=== PATIENT | female | born 1935 | race Caucasian/White ===

== ENCOUNTER 2019-11-27 07:56 | Observation (INO) ==
--- NOTE | 2019-11-27 08:57 | ERNOTE ---
Abdominal HPI - Narrative Date of Service: 11/27/19 - General Chief Complaint: Abdominal Pain Time Seen by Provider: 11/27/19 08:36 Source: patient Exam Limitations: no limitations - Immun/Allergies/Home Medications Immunizatons: IMMUNIZATION HX Immunizations Up to Date Yes History of Influenza Vaccine Yes Hx Pneumococcal Vaccination No Allergies/Adverse Reactions: Allergies No Known Allergies Allergy (Verified 12/01/19 08:37) Home Medications: HOME MEDICATIONS Alendronate Sodium [Fosamax] 70 mg PO Q7D 11/19/19 [Last Taken Unknown] Aspirin 81 mg PO DAILY 11/19/19 [Last Taken Unknown] Atorvastatin Calcium [Lipitor] 20 mg PO DAILY 11/19/19 [Last Taken Unknown] Calcium Carbonate [[id number]-Vbc-121] 500 mg PO PRN PRN 11/19/19 [Last Taken Unknown] Dexlansoprazole [Dexilant] 60 mg PO DAILY 11/19/19 [Last Taken Unknown] Donepezil HCl [Aricept] 10 mg PO HS 11/19/19 [Last Taken Unknown] Ferrous Sulfate 325 mg PO Q48H 11/19/19 [Last Taken Unknown] Furosemide [Lasix] 40 mg PO DAILY 11/19/19 [Last Taken Unknown] Levothyroxine Sodium [Tirosint] 100 mcg PO DAILY 11/19/19 [Last Taken Unknown] Macitentan [Opsumit] 10 mg PO DAILY 11/19/19 [Last Taken Unknown] Multivitamin [One Daily] 1 ea PO DAILY 11/19/19 [Last Taken Unknown] Potassium Chloride [K-Dur] 20 meq PO DAILY 11/19/19 [Last Taken Unknown] Sildenafil Citrate [Revatio] 20 mg PO TID 11/19/19 [Last Taken Unknown] Acetaminophen 500 mg PO QID #100 tab 11/30/19 [Last Taken Unknown] Polyethylene Glycol 3350 [Miralax] 17 gm PO DAILY #1 bottle 11/30/19 [Last Taken Unknown] Sennosides/Docusate Sodium [Senokot-S] 2 tab PO BID PRN #100 tab 11/30/19 [Last Taken Unknown] - History of Present Illness Narrative: This patient is an 84-year-old female who is here complaining of abdominal pain for the past 2 days. The pain is cramping in the epigastric area. She vomited overnight. She was seen here recently with constipation. She indicates she is not taking anything for the constipation. She has had no diarrhea. She is still constipated. She denies urinary symptoms. She has had prior abdominal surgery. The labs and x-ray from the prior visit were reviewed. It appears an enema was attempted but she was not able to retain the fluid. Review of Systems - Narrative Narrative: She is a ute [place] speaker. She denies fever, cough, and cold symptoms. She reports all others are negative. Medical History (Last Reviewed 11/27/19 @ 08:55 by Cirilo Oneil MD) Anemia CHF (congestive heart failure) Hypercholesteremia Hypokalemia Hypothyroid Pulmonary hypertension Sepsis secondary to UTI Surgical History: Surgical History (Last Reviewed 11/27/19 @ 08:55 by Cirilo Oneil MD) History of gastric surgery in for ulcers Family History: Family History (Last Reviewed 12/01/19 @ 08:48 by Jem Holguin MD) Other Family history non-contributory Social History: (Last Reviewed 11/27/19 @ 08:55 by Cirilo Oneil MD) Tobacco: Smoking Status: Never smoker Alcohol: alcohol intake: never Substance Use: substance use type: does not use Physical Exam - Physical Exam General Appearance: Present: wd/wn, alert, no apparent distress Head Exam: Present: normal inspection, no evidence of injury Eye Exam: Normal inspection: bilateral Ears, Nose, Throat: Present: normal ENT inspection - She is wearing a mask due to the coronavirus pandemic. Neck: Present: normal inspection Respiratory: Present: no respiratory distress, normal breath sounds Cardiovascular/Chest: Present: regular rate, rhythm, no murmur Gastrointestinal/Abdominal: Present: normal bowel sounds, soft, no organomegaly, tenderness - Upper abdominal tenderness without rebound or guarding. Rectal Exam: Present: nontender, normal rectal tone, other Back Exam: Present: normal inspection Extremity Exam: Present: pedal edema Neurological Exam: Present: alert, other - She has a flat affect and shuffling gait. Skin Exam: Present: normal color, warm/dry Progress - Date and Time Seen: Date and Time: 11/27/19 10:52 The patient initially declined having blood work done. I spoke with the patient about the x-ray results. She is not excited about staying here and requested we speak with her son. Her son was contacted and suggested that she stay. She is accepting. I spoke with Dr. Snow. She would like labs done. The patient agrees to this. - Results and Orders Patient's Lab Results:: I have reviewed the patient's lab results. Results and Orders: Laboratory Tests 11/27/19 11/27/19 10:41 10:41 WBC 7.9 RBC 5.17 Hgb 15.1 Hct 45.2 MCV 87.4 MCH 29.2 MCHC 33.4 RDW 14.6 H Plt Count 272 MPV 10.5 Neutrophils % (Manual) 80 H Band Neuts % (Manual) 3 H Lymphocytes % (Manual) 5 L Monocytes % (Manual) 12 H Neutrophils # (Manual) 6.3 H Lymphocytes # (Manual) 0.4 L Monocytes # (Manual) 0.9 Platelet Estimate Normal RBC Morphology Normal Sodium 140 Plasma Sodium 141 Potassium 3.0 L Chloride 100 Carbon Dioxide 26.2 Anion Gap 16.8 H BUN 30 H Creatinine 1.46 H Est GFR (Non-Af Amer) 36 L BUN/Creatinine Ratio 20.5 Random Glucose 165 H Calcium 9.6 Calcium Adj for Albumin 9.4 Total Bilirubin 1.1 AST 33 ALT 32 Alkaline Phosphatase 119 Total Protein 7.6 Albumin 3.8 Lipase 64 L - Vital Signs Patient's Vital Signs:: I have reviewed the patient's vital signs. Vital Signs: Vital Signs 11/27/19 08:07 Temperature 37.0 C Pulse Rate 112 H Respiratory Rate 18 Blood Pressure 128/80 O2 Sat by Pulse Oximetry 95 - X-Ray X-Ray #1 X-Ray: abdomen Interpretation: Reviewed by me X-ray Comments: ~[id number] RAD/Abdomen Flat W/ Upright *~ Exam Date: 11/27/2019 09:35 Ordering Physician: Cirilo Oneil MD Indication: Lower abdominal pain. Technique: Supine and upright views the abdomen utilizing 3 total images compared to prior examination dated November 19, 2019. Findings: Again identified is severe fecal retention throughout the colon. There is evidence of fecal impaction involving the entire colon. Severely dilated and distended colon is subsequently seen. Findings suggestive of a dysfunctional colon. Diffuse decreased bony mineralization. Degenerative change of the spine and hips. IMPRESSION: SEVERE FECAL RETENTION/FECAL IMPACTION INVOLVING THE ENTIRE COLON. Electronically signed by Jay Greco D.O.. Jay Greco DO Dict: 11/27/19 0949 Typed: 11/27/19 0949/ 11/27/19 0951 - Progress/Reassessment Chief Complaint: Abdominal Pain Departure Clinical Impression: Obstipation - Departure Disposition: Still a patient Condition: Stable
[2019-11-27 10:55] LABS: Hematocrit 45.2 % (37.0-47.0); Hemoglobin 15.1 gm/dL (12.5-16.0); Mean Cell Volume 87.4 fl (78-100); Mean Corpuscular Hemoglobin 29.2 pg (27-31); Mean Corpuscular Hgb Conc 33.4 g/dl (32-36); Mean Platelet Volume 10.5 fl (8-12.5); Platelet Count 272 K/mm3 (150-450); Red Blood Count 5.17 M/mm3 (4.2-5.4); Red Cell Distribution Width 14.6 % (11.5-14.0); White Blood Count 7.9 K/mm3 (4.0-10.5)
[2019-11-27 10:56] LABS: Albumin * 3.8 gm/dl (3.4-5.0); Anion Gap 16.8 mmol/L (6.8-13.8); BUN/Creatinine Ratio 20.5 (9.0-21.6); Bilirubin, Total 1.1 mg/dL (0.0-1.1); Ca. Corrected For Albumin 9.4 mg/dL (8.4-10.2); Calcium * 9.6 mg/dL (7.9-10.9); Carbon Dioxide 26.2 mmol/L (24-32.6); Total Protein 7.6 gm/dL (6.2-8.2)
[2019-11-27 10:57] LABS: Total Cells Counted 100
[2019-11-27 11:03] LABS: Band 3 % (0-2.0); Lymphocyte 5 % (20-51); Monocyte 12 % (0-9); Neutrophil 80 % (42-75); Neutrophil # 6.3 K/mm3 (1.3-6.0); Platelet Estimate Normal (NORMAL); RBC Morphology Normal (NORMAL)
[2019-11-27] MEDS ORDERED: MAGNESIUM HYDROXIDE 30 ML UDC PO ONE (11:11)
[2019-11-27] MEDS ORDERED: SENNOSIDES/DOCUSATE SODIUM 1 TAB TABLET PO PRN (12:55)
[2019-11-27] MEDS ORDERED: POTASSIUM BICARBONATE/CIT AC 25 MEQ TABLET.EFF PO ONE (12:57)
[2019-11-27] MEDS ORDERED: SOD CHLORIDE/NAHCO3/KCL/PEG'S 4,000 ML BTL PO ONE (14:34)
--- NOTE | 2019-11-27 14:51 | HP ---
Chief Complaint - Chief Complaint Date of Service: 11/27/19 Time of Service: 11:16 Chief Complaint: Abdominal pain History of Present Illness: 84-year-old female with a past medical history of congestive heart failure, hypokalemia, hypothyroidism, pulmonary hypertension, hypercholesterolemia, anemia presents from home with complaints of abdominal pain. She had presented to the emergency room about a week ago and was sent home on recently and was sent home on an oral bowel regimen. Enema had been tried and she was not able to hold it at her prior presentation. Patient's son stated that she has been having intermittent small slimy stools. She also had an episode of vomiting. X-ray was performed today that showed severe fecal retention/fecal impaction involving the entire colon. Blood work positive for mild hypokalemia of 3. She is being admitted for observation to initiate a more aggressive bowel regimen. Medical History (Last Reviewed 11/27/19 @ 12:00 by Judith Bland RN) Anemia CHF (congestive heart failure) Hypercholesteremia Hypokalemia Hypothyroid Pulmonary hypertension Sepsis secondary to UTI Surgical History: Surgical History (Last Reviewed 11/27/19 @ 12:00 by Judith Bland RN) History of gastric surgery in for ulcers Family History: Family History (Last Updated 11/27/19 @ 15:28 by Giana Snow MD) Other Family history non-contributory Social History: (Last Reviewed 11/27/19 @ 12:00 by Judith Bland RN) Tobacco: Smoking Status: Never smoker Alcohol: alcohol intake: never Substance Use: substance use type: does not use Review Of Systems (GEN) - Review of Systems Generalized/Overall Review: Absent: Fever Respiratory: Absent: Shortness of Breath Cardiac: Absent: Chest Pain Abdominal: Present: Abdominal Pain, Constipation Misc: All systems neg except as marked Immunizations: IMMUNIZATION HX Immunizations Up to Date Yes History of Influenza Vaccine Yes Hx Pneumococcal Vaccination No Allergies/Adverse Reactions: Allergies Allergy/AdvReac Type Severity Reaction Status Date / Time No Known Allergies Allergy Verified 11/27/19 08:19 Home Medications: HOME MEDICATIONS Alendronate Sodium [Fosamax] 70 mg PO Q7D 11/19/19 [Last Taken Unknown] Aspirin 81 mg PO DAILY 11/19/19 [Last Taken Unknown] Atorvastatin Calcium [Lipitor] 20 mg PO DAILY 11/19/19 [Last Taken Unknown] Calcium Carbonate [[id number]-Jom-203] 500 mg PO PRN PRN 11/19/19 [Last Taken Unknown] Dexlansoprazole [Dexilant] 60 mg PO DAILY 11/19/19 [Last Taken Unknown] Donepezil HCl [Aricept] 10 mg PO HS 11/19/19 [Last Taken Unknown] Ferrous Sulfate 325 mg PO Q48H 11/19/19 [Last Taken Unknown] Furosemide [Lasix] 40 mg PO DAILY 11/19/19 [Last Taken Unknown] Levothyroxine Sodium [Tirosint] 100 mcg PO DAILY 11/19/19 [Last Taken Unknown] Macitentan [Opsumit] 10 mg PO DAILY 11/19/19 [Last Taken Unknown] Multivitamin [One Daily] 1 ea PO DAILY 11/19/19 [Last Taken Unknown] Potassium Chloride [K-Dur] 20 meq PO DAILY 11/19/19 [Last Taken Unknown] Sildenafil Citrate [Revatio] 20 mg PO TID 11/19/19 [Last Taken Unknown] Exam - Exam Vital Signs: Vital Signs - Last Taken Temp 37.3 C 11/27/19 14:17 Pulse 104 H 11/27/19 14:17 Resp 18 11/27/19 14:17 BP 144/72 11/27/19 14:17 Pulse Ox 93 11/27/19 14:17 Constitutional: Present: Alert, Cooperative, No distress, Lethargic ENT Exam: Present: hearing grossly normal, moist mucous membranes Eye Exam: bilateral eye: normal inspection, PERRL Neck: Absent: lymphadenopathy (R), lymphadenopathy (L) Back Exam: Present: normal inspection, no vertebral tenderness Respiratory: Present: lungs clear, no respiratory distress, no accessory muscle use, No wheezing. Absent: crackles, rhonchi Cardiovascular/Chest: Present: normal peripheral pulses, regular rate, rhythm, no edema, no murmur Peripheral Pulses: dorsalis-pedis (R): 1+, dorsalis-pedis (L): 1+ Abdomen: Present: Normal bowel sounds, firm, distended Extremity: Present: non-tender, no pedal edema Skin Exam: Present: normal color, warm/dry Neurologic: Present: alert, normal mood/affect Appearance: Present: appropriate appearance Eye contact: Present: cooperative Thoughts: Present: normal mood /affect Diagnostic Studies: Abnormal Lab Results 11/27/19 11/27/19 Range/Units 10:41 10:41 RDW 14.6 H (11.5-14.0) % Neutrophils % (Manual) 80 H (42-75) % Band Neuts % (Manual) 3 H (0-2.0) % Lymphocytes % (Manual) 5 L (20-51) % Monocytes % (Manual) 12 H (0-9) % Neutrophils # (Manual) 6.3 H (1.3-6.0) K/mm3 Lymphocytes # (Manual) 0.4 L (1.5-3.5) k/mm3 Potassium 3.0 L (3.4-4.6) mmol/L Anion Gap 16.8 H (6.8-13.8) mmol/L BUN 30 H (3-23) mg/dL Creatinine 1.46 H (0.4-1.4) mg/dL Est GFR (Non-Af Amer) 36 L (60-130) mL/min Random Glucose 165 H (70-110) mg/dL Lipase 64 L (73-393) U/L Laboratory Results WBC 7.9 K/mm3 (4.0-10.5) 11/27/19 10:41 RBC 5.17 M/mm3 (4.2-5.4) 11/27/19 10:41 Hgb 15.1 gm/dL (12.5-16.0) 11/27/19 10:41 Hct 45.2 % (37.0-47.0) 11/27/19 10:41 MCV 87.4 fl (78-100) 11/27/19 10:41 MCH 29.2 pg (27-31) 11/27/19 10:41 MCHC 33.4 g/dl (32-36) 11/27/19 10:41 RDW 14.6 % (11.5-14.0) H 11/27/19 10:41 Plt Count 272 K/mm3 (150-450) 11/27/19 10:41 MPV 10.5 fl (8-12.5) 11/27/19 10:41 Neutrophils % (Manual) 80 % (42-75) H 11/27/19 10:41 Band Neuts % (Manual) 3 % (0-2.0) H 11/27/19 10:41 Lymphocytes % (Manual) 5 % (20-51) L 11/27/19 10:41 Monocytes % (Manual) 12 % (0-9) H 11/27/19 10:41 Neutrophils # (Manual) 6.3 K/mm3 (1.3-6.0) H 11/27/19 10:41 Lymphocytes # (Manual) 0.4 k/mm3 (1.5-3.5) L 11/27/19 10:41 Monocytes # (Manual) 0.9 k/mm3 (0.0-1.0) 11/27/19 10:41 Platelet Estimate Normal (NORMAL) 11/27/19 10:41 RBC Morphology Normal (NORMAL) 11/27/19 10:41 Sodium 140 mmol/L (132-142) 11/27/19 10:41 Plasma Sodium 141 mmol/L (130-142) 11/27/19 10:41 Potassium 3.0 mmol/L (3.4-4.6) L 11/27/19 10:41 Chloride 100 mmol/L (97-106) 11/27/19 10:41 Carbon Dioxide 26.2 mmol/L (24-32.6) 11/27/19 10:41 Anion Gap 16.8 mmol/L (6.8-13.8) H 11/27/19 10:41 BUN 30 mg/dL (3-23) H 11/27/19 10:41 Creatinine 1.46 mg/dL (0.4-1.4) H 11/27/19 10:41 Est GFR (Non-Af Amer) 36 mL/min (60-130) L 11/27/19 10:41 BUN/Creatinine Ratio 20.5 (9.0-21.6) 11/27/19 10:41 Random Glucose 165 mg/dL (70-110) H 11/27/19 10:41 Calcium 9.6 mg/dL (7.9-10.9) 11/27/19 10:41 Calcium Adj for Albumin 9.4 mg/dL (8.4-10.2) 11/27/19 10:41 Total Bilirubin 1.1 mg/dL (0.0-1.1) 11/27/19 10:41 AST 33 U/L (0-48) 11/27/19 10:41 ALT 32 U/L (19-67) 11/27/19 10:41 Alkaline Phosphatase 119 U/L (50-170) 11/27/19 10:41 Total Protein 7.6 gm/dL (6.2-8.2) 11/27/19 10:41 Albumin 3.8 gm/dl (3.4-5.0) 11/27/19 10:41 Lipase 64 U/L (73-393) L 11/27/19 10:41 Assessment/Plan - Narrative Narrative: 84-year-old female with a past medical history of congestive heart failure, hypokalemia, hypothyroidism, pulmonary hypertension, hypercholesterolemia, anemia presents from home with complaints of abdominal pain. She had presented to the emergency room about a week ago and was sent home on recently and was sent home on an oral bowel regimen. Enema had been tried and she was not able to hold it at her prior presentation. Patient's son stated that she has been having intermittent small slimy stools. She also had an episode of vomiting. X-ray was performed today that showed severe fecal retention/fecal impaction involving the entire colon. Blood work positive for mild hypokalemia of 3. She is being admitted for observation to initiate a more aggressive bowel regimen. Plan #1 start bowel regimen including senna, Colace and GoLYTELY #2 replete potassium as needed #3 CBC and CMP in the morning #4 ambulate as tolerated #5 resume home medications for comorbidities - Assessment/Plan (1) Obstipation Problem: Acute (2) Hypokalemia Problem: Acute (3) Hypothyroidism Problem: Chronic Qualifiers: Hypothyroidism type: unspecified Qualified Code(s): E03.9 - Hypothyroidism, unspecified (4) CKD (chronic kidney disease) stage 3, GFR 30-59 ml/min Problem: Chronic (5) Hyperlipidemia Problem: Chronic Qualifiers: Hyperlipidemia type: unspecified Qualified Code(s): E78.5 - Hyperlipidemia, unspecified (6) Pulmonary hypertension Problem: Chronic
[2019-11-27] MEDS ORDERED: FERROUS SULFATE 325 MG PO SCH (15:30)
[2019-11-27] MEDS ORDERED: ALENDRONATE SODIUM 70 MG TABLET PO SCH (15:30)
[2019-11-27] MEDS: SILDENAFIL CITRATE 20 MG TABLET PO SCH (16:26)
[2019-11-27] MEDS ORDERED: FERROUS SULFATE 325 MG TABLET PO SCH (17:15)
[2019-11-27] MEDS: CALCIUM CARBONATE 500 MG TAB.CHEW PO PRN (17:38)
[2019-11-27] MEDS: DONEPEZIL HCL 10 MG TABLET PO SCH (20:39)
[2019-11-28] MEDS: CALCIUM CARBONATE 500 MG TAB.CHEW PO PRN (06:34)
[2019-11-28 06:53] LABS: Hematocrit 43.3 % (37.0-47.0); Hemoglobin 14.6 gm/dL (12.5-16.0); Mean Cell Volume 86.1 fl (78-100); Mean Corpuscular Hgb Conc 33.7 g/dl (32-36); Mean Platelet Volume 10.8 fl (8-12.5); Platelet Count 255 K/mm3 (150-450); Red Blood Count 5.03 M/mm3 (4.2-5.4); Red Cell Distribution Width 14.7 % (11.5-14.0); White Blood Count 4.9 K/mm3 (4.0-10.5)
[2019-11-28 06:54] LABS: Albumin * 3.2 gm/dl (3.4-5.0); Anion Gap 12.2 mmol/L (6.8-13.8); BUN/Creatinine Ratio 29.9 (9.0-21.6); Calcium * 8.7 mg/dL (7.9-10.9); Carbon Dioxide 29.7 mmol/L (24-32.6); Potassium 2.9 mmol/L (3.4-4.6); Total Protein 6.5 gm/dL (6.2-8.2)
[2019-11-28 06:56] LABS: Total Cells Counted 100
[2019-11-28 07:09] LABS: Lymphocyte 11 % (20-51); Monocyte 12 % (0-9); Neutrophil 77 % (42-75); Neutrophil # 3.8 K/mm3 (1.3-6.0)
[2019-11-28 07:10] LABS: Macrocytosis Trace; Platelet Estimate Normal (NORMAL)
[2019-11-28] MEDS: ONDANSETRON HCL/PF 2 MG/ML VIAL IV PRN ×2 (07:31→10:40)
[2019-11-28] MEDS: LEVOTHYROXINE SODIUM 100 MCG TABLET PO SCH (07:32)
[2019-11-28] MEDS: PANTOPRAZOLE SODIUM 40 MG TABLET.EC PO SCH (07:32)
[2019-11-28] MEDS: ROSUVASTATIN CALCIUM 10 MG TABLET PO SCH (08:36)
[2019-11-28] MEDS: FUROSEMIDE 40 MG TABLET PO SCH (08:37)
[2019-11-28] MEDS: ASPIRIN 81 MG TAB.CHEW PO SCH (08:37)
[2019-11-28] MEDS: Macitentan [Opsumit] 10 MG PO SCH (08:37)
[2019-11-28] MEDS: POTASSIUM CHLORIDE 20 MEQ TABLET.SA PO SCH (08:37)
[2019-11-28] MEDS: SILDENAFIL CITRATE 20 MG TABLET PO SCH ×3 (08:37→17:15)
[2019-11-28] MEDS ORDERED: POTASSIUM BICARBONATE/CIT AC 25 MEQ TABLET.EFF PO ONE (09:13)
[2019-11-28] MEDS ORDERED: LACTULOSE 10 G/15 ML SYRUP PO SCH (09:15)
[2019-11-28] MEDS ORDERED: BISACODYL 10 MG SUPP.RECT RC PRN (09:49)
[2019-11-28] MEDS ORDERED: PSYLLIUM SEED 1 PACKET PACKET PO SCH (10:00)
[2019-11-28] MEDS ORDERED: DIATRIZOATE MEGLUMINE, SODIUM 30 ML BTL PO ONE (14:21)
--- NOTE | 2019-11-28 15:08 | PN ---
Subjective - Date and Time Seen Date: 11/28/19 Time: 09:16 Subjective Narrative: She had one small bowel movement overnight. She did have some nausea and vomiting last night but none this morning. She does continue to have some nausea today. She continues to have abdominal discomfort but denies pain. Objective - Review of Systems Generalized/Overall Review: Denies: Fever Respiratory: Denies: Shortness of Breath Cardiac: Denies: Chest Pain Abdominal: Reports: Other - Abdominal discomfort. Denies: Abdominal Pain Misc: All systems neg except as marked - Vitals Vitals: Last Vital Signs Temp 37.0 C 11/28/19 13:39 Pulse 100 11/28/19 13:39 Resp 16 11/28/19 13:39 BP 139/75 11/28/19 13:39 Pulse Ox 95 11/28/19 13:39 - Abnormal Lab Findings Abnormal Lab Findings: Abnormal Lab Results 11/28/19 11/28/19 Range/Units 06:34 06:34 RDW 14.7 H (11.5-14.0) % Neutrophils % (Manual) 77 H (42-75) % Lymphocytes % (Manual) 11 L (20-51) % Monocytes % (Manual) 12 H (0-9) % Lymphocytes # (Manual) 0.5 L (1.5-3.5) k/mm3 Potassium 2.9 L (3.4-4.6) mmol/L BUN 38 H (3-23) mg/dL Est GFR (Non-Af Amer) 43 L (60-130) mL/min BUN/Creatinine Ratio 29.9 H (9.0-21.6) Random Glucose 141 H (70-110) mg/dL Albumin 3.2 L (3.4-5.0) gm/dl - Exam Constitutional: Present: Alert, Cooperative, Well developed, Well nourished, No distress, Elderly ENT Exam: Present: hearing grossly normal Neck: Present: supple. Absent: lymphadenopathy (R), lymphadenopathy (L) Respiratory: Present: lungs clear, no respiratory distress, no accessory muscle use, No wheezing. Absent: crackles, rhonchi Cardiovascular/Chest: Present: normal peripheral pulses, regular rate, rhythm, no murmur Abdomen: Present: Normal bowel sounds, soft, nontender Extremity: Present: lower extremity edema - 1+ pitting bilateral lower extremities Skin Exam: Present: normal color, warm/dry Neurologic: Present: alert, normal mood/affect Appearance: Present: appropriate appearance Eye contact: Present: cooperative Thoughts: Present: normal mood /affect Assessment/Plan Plan Narrative: 84-year-old female with a past medical history of congestive heart failure, hypokalemia, hypothyroidism, pulmonary hypertension, hypercholesterolemia, anemia presents from home with complaints of abdominal pain. She had presented to the emergency room about a week ago and was sent home on recently and was sent home on an oral bowel regimen. Enema had been tried and she was not able to hold it at her prior presentation. Patient's son stated that she has been having intermittent small slimy stools. She also had an episode of vomiting. X-ray was performed today that showed severe fecal retention/fecal impaction involving the entire colon. Blood work positive for mild hypokalemia of 3. She is being admitted for observation to initiate a more aggressive bowel regimen. She still has not had an adequate bowel movement. She had one small 1 overnight. She continues to be distended and have abdominal discomfort. Plan #1 Continue bowel regimen including senna, Colace and GoLYTELY. I will add lactulose, Fleet enema and Metamucil to her regimen #2 replete potassium as needed #3 CBC and CMP in the morning #4 ambulate as tolerated #5 resume home medications for comorbidities, I am holding her iron supplement #6 I will send her for CT abdomen and pelvis to assess for any lesions that may be preventing her from moving her bowels. - Problems/Diagnosis (1) Obstipation Problem: Acute (2) Hypokalemia Problem: Acute (3) Hypothyroidism Problem: Chronic Qualifiers: Hypothyroidism type: unspecified Qualified Code(s): E03.9 - Hypothyroidism, unspecified (4) CKD (chronic kidney disease) stage 3, GFR 30-59 ml/min Problem: Chronic (5) Hyperlipidemia Problem: Chronic Qualifiers: Hyperlipidemia type: unspecified Qualified Code(s): E78.5 - Hyperlipidemia, unspecified (6) Pulmonary hypertension Problem: Chronic (7) Nausea and vomiting Problem: Acute Qualifiers: Vomiting type: unspecified Vomiting Intractability: non-intractable Qualified Code(s): R11.2 - Nausea with vomiting, unspecified
[2019-11-28] MEDS ORDERED: ONDANSETRON HCL/PF 2 MG/ML VIAL IV ONE (16:00)
[2019-11-28 17:52] LABS: Urine Bilirubin Negative (NEGATIVE); Urine Blood Negative /ul (NEGATIVE); Urine Ketone Negative (NEGATIVE); Urine Nitrite Negative (NEGATIVE); Urine Protein Negative (NEGATIVE); Urine Urobilinogen Normal (NORMAL); Urine pH 7.5 pH (5.0-7.0)
[2019-11-28 17:58] LABS: Urine Appearance Cloudy (CLEAR); Urine Bacteria 2+; Urine Color Yellow; Urine RBC None Seen /hpf (0-5); Urine WBC None Seen /hpf (0-5)
[2019-11-28 17:59] LABS: Urine Amorphous Sediment Few - 1+ (NONE-FEW)
--- NOTE | 2019-11-28 18:52 | CONS ---
HPI - General Date of Service: 11/28/19 Narrative: She was admitted through the emergency room yesterday with colonic distention. Source: patient, RN/MD, RN notes reviewed, old records Exam Limitations: language barrier, other - possibly hearing and baseline orientation - History of Present Illness Initial Comments: She has been seen before in the emergency room on 11/19/2019 with abdominal distention. X-rays at that time showed colonic distention with fecal impaction. History is difficult to obtain due to language barrier and possible hard of hearing/baseline mental status. She does state that she only moves her bowels every 3 or 4 days. She has had this problem once before but it got better when she passed a lot of stool. Currently her abdomen is distended but she denies pain with cough or movement. She has been a little nauseated with the GoLYTELY and CT contrast. She has passed flatus (a large amount from the nurses notes last night) today she has been up to the bathroom several times and had a smear of bowel movement each time and apparently some gas. She has been afebrile her white count is normal and her vital signs have been relatively normal Allergies/Adverse Reactions: Allergies No Known Allergies Allergy (Verified 11/27/19 08:19) Home Medications: Home Medications Medication Instructions Recorded Last Taken Alendronate Sodium [Fosamax] 70 mg PO Q7D 11/19/19 Unknown Aspirin 81 mg PO DAILY 11/19/19 Unknown Atorvastatin Calcium [Lipitor] 20 mg PO DAILY 11/19/19 Unknown Calcium Carbonate [[id number]] 500 mg PO PRN PRN 11/19/19 Unknown Dexlansoprazole [Dexilant] 60 mg PO DAILY 11/19/19 Unknown Donepezil HCl [Aricept] 10 mg PO HS 11/19/19 Unknown Ferrous Sulfate 325 mg PO Q48H 11/19/19 Unknown Furosemide [Lasix] 40 mg PO DAILY 11/19/19 Unknown Levothyroxine Sodium [Tirosint] 100 mcg PO DAILY 11/19/19 Unknown Macitentan [Opsumit] 10 mg PO DAILY 11/19/19 Unknown Multivitamin [One Daily] 1 ea PO DAILY 11/19/19 Unknown Potassium Chloride [K-Dur] 20 meq PO DAILY 11/19/19 Unknown Sildenafil Citrate [Revatio] 20 mg PO TID 11/19/19 Unknown Medications - Medications Current Medications: Current Medications Aspirin (Aspirin Chewable) 81 mg PO DAILY G[facility]Y Stop: 12/28/19 09:01 Last Admin: 11/28/19 08:37 Dose: 81 mg Documented by: Bisacodyl (Dulcolax Suppository) 10 mg RC DAILY PRN PRN Reason: Constipation Stop: 12/28/19 09:50 Last Admin: 11/28/19 11:00 Dose: 10 mg Documented by: Calcium Carbonate/Glycine (Tums) 500 mg PO PRN PRN PRN Reason: STOMACH ACID Stop: 12/27/19 17:16 Last Admin: 11/28/19 06:34 Dose: 500 mg Documented by: Donepezil HCl (Aricept) 10 mg PO HS [facility] Stop: 12/27/19 21:01 Last Admin: 11/27/19 20:39 Dose: 10 mg Documented by: Furosemide (Lasix) 40 mg PO DAILY GABY Stop: 12/28/19 09:01 Last Admin: 11/28/19 08:37 Dose: 40 mg Documented by: Levothyroxine Sodium (Synthroid) 100 mcg PO DAILY@0700 [facility] Stop: 12/28/19 07:01 Last Admin: 11/28/19 07:32 Dose: 100 mcg Documented by: Macitentan [Opsumit] (10 Mg) 10 mg PO DAILY [facility] Stop: 12/28/19 09:01 Last Admin: 11/28/19 08:37 Dose: Not Given Documented by: Pantoprazole Sodium (Protonix) 40 mg PO DAILY@0700 [facility] Stop: 12/28/19 07:31 Last Admin: 11/28/19 07:32 Dose: 40 mg Documented by: Potassium Chloride (K-Dur) 20 meq PO DAILY G[facility]Y Stop: 12/28/19 09:01 Last Admin: 11/28/19 08:37 Dose: 20 meq Documented by: Psyllium Hydrophilic Mucilloid (Metamucil) 1 each PO DAILY [facility] Stop: 12/28/19 10:01 Last Admin: 11/28/19 13:06 Dose: Not Given Documented by: Rosuvastatin Calcium (Crestor) 10 mg PO DAILY G[facility]Y Stop: 12/28/19 09:01 Last Admin: 11/28/19 08:36 Dose: 10 mg Documented by: Senna/Docusate Sodium (Senokot-S) 2 tab PO BID PRN PRN Reason: Constipation Stop: 12/27/19 12:56 Last Admin: 11/27/19 20:39 Dose: 2 tab Documented by: Sildenafil Citrate (Revatio) 20 mg PO TID GABY Stop: 12/27/19 17:01 Last Admin: 11/28/19 17:15 Dose: 20 mg Documented by: Review of Systems - Review of Systems Generalized/Overall Review: Present: Weakness. Absent: Chills, Fever EENTM: Present: No Symptoms Reported Respiratory: Present: No Symptoms Reported Cardiac: Present: No Symptoms Reported Abdominal: Present: Constipation, Other - Soft distention, but denies pain with cough or exam Genitourinary: Present: No Symptoms Reported Musculoskeletal: Present: No Symptoms Reported Neurological: Present: No Symptoms Reported Skin: Present: No Symptoms Reported Physical Examination - Exam Vital Signs: Vital Signs - Last Taken Temp 37.0 C 11/28/19 13:39 Pulse 100 11/28/19 13:39 Resp 16 11/28/19 13:39 BP 139/75 11/28/19 13:39 Pulse Ox 95 11/28/19 13:39 O2 Oxygen Delivery Method Room Air Constitutional: Present: Alert, Cooperative, No distress, Thin and frail ENT Exam: Present: normal ENT inspection, other - Edentulous Neck: Present: normal inspection Breasts: Present: Exam deferred Respiratory: Present: no respiratory distress Abdomen: Present: other - Soft. Palpable stool. No discrete direct or rebound tenderness and no guarding, distended /Rectal: Present: Other - Anus appears normal. Sphincter tone is somewhat lax. The rectum is empty. The examining finger can be advanced into the distal sigmoid. There is very hard stool palpable above this however the examining finger cannot be advanced to the stool itself. Extremity: Present: normal range of motion Skin Exam: Present: warm/dry Neurologic: Present: other - She is alert. She may be hard of hearing. There is some language barrier but she does answer questions appropriately Eye contact: Present: cooperative - Results and Findings: Lab/Microbiology results last 24 hrs: Abnormal/Pending Laboratory Last 24 HRS 11/28/19 11/28/19 11/28/19 17:43 06:34 06:34 RDW 14.7 H Neutrophils % (Manual) 77 H Lymphocytes % (Manual) 11 L Monocytes % (Manual) 12 H Lymphocytes # (Manual) 0.5 L Potassium 2.9 L BUN 38 H Est GFR (Non-Af Amer) 43 L BUN/Creatinine Ratio 29.9 H Random Glucose 141 H Albumin 3.2 L Urine Bacteria 2+ H Flat and upright abdominal x-rays show massive amount of stool. The CT scan today shows a large amount of stool. The small bowel is normal caliber. There is no free fluid. - Assessments/Findings (1) Constipation Diagnosis(s): This appears to be a chronic problem with very hard stool present above the level that can be reached with the finger. The x-rays from 11/19/2019 and 11/27/2019 do not appear significantly different, although there may be less proximal hard stool in the most recent exams. The material for the CT scan and also the GoLYTELY may produce some cathartic results. This does not clinically appear to be a condition that would predispose to acute toxic megacolon, so observation to see the effects of the materials administered would be in order. Case discussed with Dr. Snow. Will continue to follow the patient Problem: Acute Qualifiers: Constipation type: unspecified constipation type Qualified Code(s): K59.00 - Constipation, unspecified
[2019-11-28] MEDS: CIPROFLOXACIN HCL 500 MG TABLET PO SCH (20:36)
[2019-11-28] MEDS: LACTULOSE 10 G/15 ML SYRUP PO SCH (20:37)
[2019-11-28] MEDS: DONEPEZIL HCL 10 MG TABLET PO SCH (20:38)
[2019-11-29] MEDS: ONDANSETRON HCL/PF 2 MG/ML VIAL IV PRN (03:20)
[2019-11-29 06:05] LABS: Hematocrit 42.8 % (37.0-47.0); Hemoglobin 14.2 gm/dL (12.5-16.0); Mean Cell Volume 87.9 fl (78-100); Mean Corpuscular Hemoglobin 29.2 pg (27-31); Mean Corpuscular Hgb Conc 33.2 g/dl (32-36); Mean Platelet Volume 10.3 fl (8-12.5); Platelet Count 239 K/mm3 (150-450); Red Blood Count 4.87 M/mm3 (4.2-5.4); Red Cell Distribution Width 14.6 % (11.5-14.0); White Blood Count 8.3 K/mm3 (4.0-10.5)
[2019-11-29 06:11] LABS: Total Cells Counted 100
[2019-11-29 06:23] LABS: Albumin * 3.1 gm/dl (3.4-5.0); Anion Gap 12.6 mmol/L (6.8-13.8); BUN/Creatinine Ratio 29.9 (9.0-21.6); Bilirubin, Total 0.9 mg/dL (0.0-1.1); Ca. Corrected For Albumin 8.3 mg/dL (8.4-10.2); Calcium * 7.9 mg/dL (7.9-10.9); Carbon Dioxide 30.9 mmol/L (24-32.6); Potassium 3.5 mmol/L (3.4-4.6); Total Protein 6.1 gm/dL (6.2-8.2)
[2019-11-29 06:29] LABS: Atypical (Reactive) Lymph 1 % (0-2); Band 26 % (0-2.0); Lymphocyte 4 % (20-51); Monocyte 9 % (0-9); Neutrophil 60 % (42-75); Toxic Granulation 1+
[2019-11-29] MEDS: LEVOTHYROXINE SODIUM 100 MCG TABLET PO SCH (07:30)
[2019-11-29] MEDS: PANTOPRAZOLE SODIUM 40 MG TABLET.EC PO SCH (07:30)
[2019-11-29] MEDS ORDERED: BISACODYL 5 MG TABLET.DR PO PRN (08:05)
[2019-11-29] MEDS ORDERED: POLYETHYLENE GLYCOL 3350 119 GM BTL PO SCH (09:00)
[2019-11-29] MEDS ORDERED: MAGNESIUM CITRATE 300 ML BTL PO ONE (09:21)
[2019-11-29] MEDS: SILDENAFIL CITRATE 20 MG TABLET PO SCH ×3 (09:40→16:25)
[2019-11-29] MEDS: Macitentan [Opsumit] 10 MG PO SCH (09:40)
[2019-11-29] MEDS: POLYETHYLENE GLYCOL 3350 17 GM PACKET PO SCH (09:40)
[2019-11-29] MEDS: BISACODYL 5 MG TABLET.DR PO SCH (09:40)
[2019-11-29] MEDS: ROSUVASTATIN CALCIUM 10 MG TABLET PO SCH (09:40)
[2019-11-29] MEDS: FUROSEMIDE 40 MG TABLET PO SCH (09:40)
[2019-11-29] MEDS: ASPIRIN 81 MG TAB.CHEW PO SCH (09:40)
[2019-11-29] MEDS: CIPROFLOXACIN HCL 500 MG TABLET PO SCH (09:40)
[2019-11-29] MEDS: POTASSIUM CHLORIDE 20 MEQ TABLET.SA PO SCH (09:40)
[2019-11-29] MEDS: LACTULOSE 10 G/15 ML SYRUP PO SCH (12:14)
[2019-11-29] MEDS: DONEPEZIL HCL 10 MG TABLET PO SCH (20:11)
--- NOTE | 2019-11-29 22:55 | PN ---
Subjective - Date and Time Seen Date: 11/29/19 Time: 08:38 Subjective Narrative: Patient laying comfortable in bed. Has had multilple bowel movements since being admitted for constipation. She states that she is starting to feel better but her belly is still mildly distended. She denies constipation now, she is passing gas. Her vitals are stable and she is afebrile. Objective - Review of Systems Generalized/Overall Review: Reports: No Symptoms Reported EENTM: Reports: No Symptoms Reported Respiratory: Reports: No Symptoms Reported Cardiac: Reports: No Symptoms Reported Abdominal: Reports: Constipation - improving. Denies: Nausea, Vomiting, Melena Genitourinary Symptoms: Reports: No Symptoms Reported Skin: Reports: No Symptoms Reported Endocrine: Reports: No Symptoms Reported - Vitals Vitals: Last Vital Signs Temp 36.6 C 11/29/19 20:00 Pulse 102 H 11/29/19 20:00 Resp 16 11/29/19 20:00 BP 130/70 11/29/19 20:00 Pulse Ox 92 L 11/29/19 20:00 - Abnormal Lab Findings Abnormal Lab Findings: Abnormal Lab Results 11/29/19 11/29/19 Range/Units 05:55 05:55 RDW 14.6 H (11.5-14.0) % Band Neuts % (Manual) 26 H (0-2.0) % Lymphocytes % (Manual) 4 L (20-51) % Lymphocytes # (Manual) 0.3 L (1.5-3.5) k/mm3 BUN 41 H (3-23) mg/dL Est GFR (Non-Af Amer) 39 L (60-130) mL/min BUN/Creatinine Ratio 29.9 H (9.0-21.6) Random Glucose 138 H (70-110) mg/dL Calcium Adj for Albumin 8.3 L (8.4-10.2) mg/dL Total Protein 6.1 L (6.2-8.2) gm/dL Albumin 3.1 L (3.4-5.0) gm/dl - Exam Constitutional: Present: Alert, Oriented x3, Elderly, Thin and frail Cardiovascular/Chest: Present: regular rate, rhythm Abdomen: Present: Normal bowel sounds, distended - mildly, hypoactive. Absent: tender Skin Exam: Present: normal color, warm/dry Appearance: Present: impaired insight Eye contact: Present: cooperative Assessment/Plan Plan Narrative: Patient has had multiple bowel movements since being admitted, starting her on a bowel regimen today. Will order PT to evaluate deconditioning and weakness. Likely home tomorrow, may need HHC with PT pending PT eval. Nurse to call with questions or concerns. - Problems/Diagnosis (1) Constipation Problem: Acute Qualifiers: Constipation type: unspecified constipation type Qualified Code(s): K59.00 - Constipation, unspecified (2) Obstipation Problem: Acute (3) Muscular deconditioning Problem: Acute
[2019-11-30 06:34] LABS: Hematocrit 40.8 % (37.0-47.0); Hemoglobin 13.5 gm/dL (12.5-16.0); Mean Cell Volume 87.9 fl (78-100); Mean Corpuscular Hemoglobin 29.1 pg (27-31); Mean Corpuscular Hgb Conc 33.1 g/dl (32-36); Mean Platelet Volume 10.4 fl (8-12.5); Neutrophil # 5.2 K/mm3 (1.3-6.0); Neutrophil % 74.1 % (42-75.0); Platelet Count 213 K/mm3 (150-450); Red Blood Count 4.64 M/mm3 (4.2-5.4); Red Cell Distribution Width 14.7 % (11.5-14.0)
[2019-11-30 06:47] LABS: Albumin * 2.7 gm/dl (3.4-5.0); Anion Gap 13.3 mmol/L (6.8-13.8); BUN/Creatinine Ratio 29.1 (9.0-21.6); Bilirubin, Total 0.7 mg/dL (0.0-1.1); Ca. Corrected For Albumin 8.6 mg/dL (8.4-10.2); Calcium * 7.9 mg/dL (7.9-10.9); Carbon Dioxide 29.2 mmol/L (24-32.6); Potassium 3.5 mmol/L (3.4-4.6); Total Protein 5.4 gm/dL (6.2-8.2)
[2019-11-30] MEDS: PANTOPRAZOLE SODIUM 40 MG TABLET.EC PO SCH (06:58)
[2019-11-30] MEDS: LEVOTHYROXINE SODIUM 100 MCG TABLET PO SCH (06:58)
[2019-11-30] MEDS: POLYETHYLENE GLYCOL 3350 17 GM PACKET PO SCH (09:06)
[2019-11-30] MEDS: Macitentan [Opsumit] 10 MG PO SCH (09:06)
[2019-11-30] MEDS: SILDENAFIL CITRATE 20 MG TABLET PO SCH ×2 (09:07→13:30)
[2019-11-30] MEDS: ASPIRIN 81 MG TAB.CHEW PO SCH (09:07)
[2019-11-30] MEDS: BISACODYL 5 MG TABLET.DR PO SCH (09:07)
[2019-11-30] MEDS: ROSUVASTATIN CALCIUM 10 MG TABLET PO SCH (09:07)
[2019-11-30] MEDS: POTASSIUM CHLORIDE 20 MEQ TABLET.SA PO SCH (09:07)
[2019-11-30] MEDS: FUROSEMIDE 40 MG TABLET PO SCH (09:07)
[2019-11-30] MEDS: CIPROFLOXACIN HCL 500 MG TABLET PO SCH (09:08)
[2019-11-30] MEDS: ONDANSETRON HCL/PF 2 MG/ML VIAL IV PRN (09:37)
--- NOTE | 2019-11-30 10:30 | DS ---
(1) Constipation Problem: Chronic Qualifiers: Constipation type: drug induced constipation Qualified Code(s): K59.03 - Drug induced constipation (2) Obstipation Problem: Acute (3) Hypokalemia Problem: Resolved (4) CKD (chronic kidney disease) stage 3, GFR 30-59 ml/min Problem: Chronic (5) Pulmonary hypertension Problem: Chronic (6) Nausea and vomiting Problem: Resolved Qualifiers: Vomiting type: unspecified Vomiting Intractability: non-intractable Qualified Code(s): R11.2 - Nausea with vomiting, unspecified Date of Discharge:: 11/30/19 Hospital Course: 84-year-old female with a past medical history of congestive heart failure, hypokalemia, hypothyroidism, pulmonary hypertension, hypercholesterolemia, anemia presents from home with complaints of abdominal pain. She had presented to the emergency room about a week ago and was sent home on recently and was sent home on an oral bowel regimen. Enema had been tried and she was not able to hold it at her prior presentation. Patient's son stated that she has been having intermittent small slimy stools. She also had an episode of vomiting. X-ray was performed today that showed severe fecal retention/fecal impaction involving the entire colon. Blood work positive for mild hypokalemia of 3. She was admitted for observation to initiate a more aggressive bowel regimen. While here she was given cathartics, bulking agents, lubricants, and stimulants. She did start stooling and her abdominal distention is much improved. She is still stooling this morning some. She is complaining of abdominal cramping however and it is most likely from the cathartics. Otherwise she remained stable. I did see her last evening briefly and just introduce myself and then saw her again this morning. She seems more lucid and her conversation is more appropriate this morning. Apparently she has some chronic pain issues and had been treated with gabapentin and taken off of morphine by Dr. Arellano. She then went to Dr. Mclean who kept her on the gabapentin and added the morphine back. Apparently after that is when she started having some increased mental status changes and abdominal complaints. She has not been taking gabapentin or morphine while in the hospital. She does seem to be having some abdominal pain but it may be from the bowel cleansing attempts with multiple medicines while here. At any rate the abdominal distention is resolved and she is stooling more appropriately now. That being resolved, she can be discharged back to home. I will have her follow-up with Dr. Mclean next week. Procedures Performed: none Plan of Treatment: Home health recommended but declined by family. Health Concerns: Constipation. Try to avoid constipating medicines and foods. Constipating foods often include dairy. Medicines include pain medications such as narcotics. Calcium is also constipating. Consider adding magnesium to each dose of calcium. Please review with your primary care physician. Results and Findings: Lab Pending Results 11/27/19 10:41: WBC 7.9, RBC 5.17, Hgb 15.1, Hct 45.2, MCV 87.4, MCH 29.2, MCHC 33.4, RDW 14.6 H, Plt Count 272, MPV 10.5, Neutrophils % (Manual) 80 H, Band Neuts % (Manual) 3 H, Lymphocytes % (Manual) 5 L, Monocytes % (Manual) 12 H, Neutrophils # (Manual) 6.3 H, Lymphocytes # (Manual) 0.4 L, Monocytes # (Manual) 0.9, Platelet Estimate Normal, RBC Morphology Normal 11/27/19 10:41: Sodium 140, Plasma Sodium 141, Potassium 3.0 L, Chloride 100, Carbon Dioxide 26.2, Anion Gap 16.8 H, BUN 30 H, Creatinine 1.46 H, Est GFR (Non-Af Amer) 36 L, BUN/Creatinine Ratio 20.5, Random Glucose 165 H, Calcium 9.6, Calcium Adj for Albumin 9.4, Total Bilirubin 1.1, AST 33, ALT 32, Alkaline Phosphatase 119, Total Protein 7.6, Albumin 3.8, Lipase 64 L 11/28/19 06:34: WBC 4.9 D, RBC 5.03, Hgb 14.6, Hct 43.3, MCV 86.1, MCH 29.0, MCHC 33.7, RDW 14.7 H, Plt Count 255, MPV 10.8, Neutrophils % (Manual) 77 H, Lymphocytes % (Manual) 11 L, Monocytes % (Manual) 12 H, Neutrophils # (Manual) 3.8, Lymphocytes # (Manual) 0.5 L, Monocytes # (Manual) 0.6, Platelet Estimate Normal, Macrocytosis Trace 11/28/19 06:34: Sodium 139, Plasma Sodium 140, Potassium 2.9 L, Chloride 100, Carbon Dioxide 29.7, Anion Gap 12.2, BUN 38 H, Creatinine 1.27, Est GFR (Non-Af Amer) 43 L, BUN/Creatinine Ratio 29.9 H, Random Glucose 141 H, Calcium 8.7, Calcium Adj for Albumin 9.0, Total Bilirubin 1.0, AST 31, ALT 34, Alkaline Phosphatase 103, Total Protein 6.5, Albumin 3.2 L 11/28/19 17:43: Urine Color Yellow, Urine Appearance Cloudy, Urine pH 7.5, Ur Specific [place] 1.010, Urine Protein Negative, Urine Glucose (UA) Negative, Urine Ketones Negative, Urine Blood Negative, Urine Nitrate Negative, Urine Bilirubin Negative, Urine Urobilinogen Normal, Ur Leukocyte Esterase Negative, Urine RBC None seen, Urine WBC None seen, Ur Epithelial Cells 0-5, Amorphous Sediment Few - 1+, Urine Bacteria 2+ H, Urine Culture Comments Culture to follow 11/29/19 05:55: WBC 8.3 D, RBC 4.87, Hgb 14.2, Hct 42.8, MCV 87.9, MCH 29.2, MCHC 33.2, RDW 14.6 H, Plt Count 239, MPV 10.3, Neutrophils % (Manual) 60, Band Neuts % (Manual) 26 H, Lymphocytes % (Manual) 4 L, Monocytes % (Manual) 9, Neutrophils # (Manual) 5.0, Lymphocytes # (Manual) 0.3 L, Monocytes # (Manual) 0.7, Atypic/Reactive Lymphs 1, Toxic Granulation 1+, Toxic Vacuolation 1+ 11/29/19 05:55: Sodium 141, Plasma Sodium 142, Potassium 3.5 D, Chloride 101, Carbon Dioxide 30.9, Anion Gap 12.6, BUN 41 H, Creatinine 1.37, Est GFR (Non-Af Amer) 39 L, BUN/Creatinine Ratio 29.9 H, Random Glucose 138 H, Calcium 7.9, Calcium Adj for Albumin 8.3 L, Total Bilirubin 0.9, AST 36, ALT 37, Alkaline Phosphatase 102, Total Protein 6.1 L, Albumin 3.1 L 11/30/19 06:19: WBC 7.0, RBC 4.64, Hgb 13.5, Hct 40.8, MCV 87.9, MCH 29.1, MCHC 33.1, RDW 14.7 H, Plt Count 213, MPV 10.4, Immature Gran % (Auto) 0.40, Immature Gran # (Auto) 0.03, Neutrophils % 74.1, Lymphocytes % 13.9 L, Monocytes % 10.9 H, Eosinophils % 0.6, Basophils % 0.1, Nucleated RBC % 0.0, Neutrophils # 5.2, Lymphocytes # 0.97 L, Monocytes # 0.8, Eosinophils # 0.0, Absolute Basophils 0.0 11/30/19 06:19: Sodium 142, Plasma Sodium 142, Potassium 3.5, Chloride 103, Carbon Dioxide 29.2, Anion Gap 13.3, BUN 41 H, Creatinine 1.41 H, Est GFR (Non- Af Amer) 38 L, BUN/Creatinine Ratio 29.1 H, Random Glucose 113 H, Calcium 7.9, Calcium Adj for Albumin 8.6, Total Bilirubin 0.7, AST 27, ALT 30, Alkaline Phosphatase 89, Total Protein 5.4 L, Albumin 2.7 L Discharge Location: Home Disposition: Home self-care Condition: Stable Discharge Activity: Activity as tolerated Discharge Diet: General/regular food, High Fiber, Other - Add protein shakes 3 times daily between meals Referrals: Luzma Julian, [Primary Care Provider] - Additional Patient Instructions (free text): Follow up appointment with PCP Luzma Julian in [place] office on at 10:40am. Please fax DC Summary/DC instructions to PCP Luzma Julian to fax # [phone]. Complete Home Medications List: Complete Home Medication List: Alendronate Sodium [Fosamax] 70 mg PO Q7D 11/19/19 Aspirin 81 mg PO DAILY 11/19/19 Atorvastatin Calcium [Lipitor] 20 mg PO DAILY 11/19/19 Calcium Carbonate [[id number]] 500 mg PO PRN PRN 11/19/19 Dexlansoprazole [Dexilant] 60 mg PO DAILY 11/19/19 Donepezil HCl [Aricept] 10 mg PO HS 11/19/19 Ferrous Sulfate 325 mg PO Q48H 11/19/19 Furosemide [Lasix] 40 mg PO DAILY 11/19/19 Levothyroxine Sodium [Tirosint] 100 mcg PO DAILY 11/19/19 Macitentan [Opsumit] 10 mg PO DAILY 11/19/19 Multivitamin [One Daily] 1 ea PO DAILY 11/19/19 Potassium Chloride [K-Dur] 20 meq PO DAILY 11/19/19 Sildenafil Citrate [Revatio] 20 mg PO TID 11/19/19 Acetaminophen 500 mg PO QID #100 tab 11/30/19 Polyethylene Glycol 3350 [Miralax] 17 gm PO DAILY #1 bottle 11/30/19 Sennosides/Docusate Sodium [Senokot-S] 2 tab PO BID PRN #100 tab 11/30/19 Forms: Patient Portal Registration
[2019-11-30 12:24] VITALS: BP 121/67
[2019-12-04] MEDS ORDERED: ALENDRONATE SODIUM 70 MG TABLET PO SCH (06:00)
== END 2019-11-30 13:15 | disposition home or self-care (01) ==
LOC: ER 07:56 → MS 07:56
PROVIDERS: ADMIT Internal Medicine; ATTEND Internal Medicine
DX: N39.0 Urinary tract infection, site not specified; I50.9 Heart failure, unspecified; E87.6 Hypokalemia; K59.03 Drug induced constipation; N18.3 Chronic kidney disease, stage 3 (moderate); E03.9 Hypothyroidism, unspecified; I27.20 Pulmonary hypertension, unspecified; I13.0 Hypertensive heart and chronic kidney disease with heart failure and stage 1 through stage 4 chronic kidney disease, or unspecified chronic kidney disease; E78.5 Hyperlipidemia, unspecified
CPT/HCPCS: 36415; 74019; 74020; 74177; 80053; 81001; 83690; 85025; 87077; 87086; 87186; 97161; 99284; J2405; Q9963; Q9967

== ENCOUNTER 2019-12-01 08:19 | Inpatient (IN) ==
[2019-12-01 08:44] LABS: Hematocrit 42.7 % (37.0-47.0); Hemoglobin 13.8 gm/dL (12.5-16.0); Mean Cell Volume 87.9 fl (78-100); Mean Corpuscular Hemoglobin 28.4 pg (27-31); Mean Corpuscular Hgb Conc 32.3 g/dl (32-36); Mean Platelet Volume 10.4 fl (8-12.5); Platelet Count 222 K/mm3 (150-450); Red Blood Count 4.86 M/mm3 (4.2-5.4); Red Cell Distribution Width 14.6 % (11.5-14.0); White Blood Count 3.9 K/mm3 (4.0-10.5)
[2019-12-01 08:47] LABS: Total Cells Counted 100
--- NOTE | 2019-12-01 08:50 | ERNOTE ---
Medical Problem HPI - Narrative Date of Service: 12/01/19 - General Chief Complaint: General Assessment Time Seen by Provider: 12/01/19 08:23 Source: patient - Pt cannot give useful information, EMS Exam Limitations: clinical condition - Immun/Allergies/Home Medications Immunizations: IMMUNIZATION HX Immunizations Up to Date Yes History of Influenza Vaccine Yes Hx Pneumococcal Vaccination No Allergies/Adverse Reactions: Allergies No Known Allergies Allergy (Verified 12/01/19 08:37) Home Medications: HOME MEDICATIONS Alendronate Sodium [Fosamax] 70 mg PO Q7D 11/19/19 [Last Taken Unknown] Aspirin 81 mg PO DAILY 11/19/19 [Last Taken Unknown] Atorvastatin Calcium [Lipitor] 20 mg PO DAILY 11/19/19 [Last Taken Unknown] Calcium Carbonate [[id number]] 500 mg PO PRN PRN 11/19/19 [Last Taken Unknown] Dexlansoprazole [Dexilant] 60 mg PO DAILY 11/19/19 [Last Taken Unknown] Donepezil HCl [Aricept] 10 mg PO HS 11/19/19 [Last Taken Unknown] Ferrous Sulfate 325 mg PO Q48H 11/19/19 [Last Taken Unknown] Furosemide [Lasix] 40 mg PO DAILY 11/19/19 [Last Taken Unknown] Levothyroxine Sodium [Tirosint] 100 mcg PO DAILY 11/19/19 [Last Taken Unknown] Macitentan [Opsumit] 10 mg PO DAILY 11/19/19 [Last Taken Unknown] Multivitamin [One Daily] 1 ea PO DAILY 11/19/19 [Last Taken Unknown] Potassium Chloride [K-Dur] 20 meq PO DAILY 11/19/19 [Last Taken Unknown] Sildenafil Citrate [Revatio] 20 mg PO TID 11/19/19 [Last Taken Unknown] Acetaminophen 500 mg PO QID #100 tab 11/30/19 [Last Taken Unknown] Polyethylene Glycol 3350 [Miralax] 17 gm PO DAILY #1 bottle 11/30/19 [Last Taken Unknown] Sennosides/Docusate Sodium [Senokot-S] 2 tab PO BID PRN #100 tab 11/30/19 [Last Taken Unknown] - History of Present History Narrative: Just DC after [facility] admission for bowel obstruction per EMS. This AM very confused, weak. EMS found Ox sat 81% on RA, got into 90's on 4 lpm. Pt not able to tell me much, denies abdominal pain. Date (Duration): 12/01/19 Time (Timing): 08:15 Timing: constant Severity: moderate Review of Systems - Review of Systems Constitutional: Present: no symptoms reported - Pt alertness and communication limited. , See HPI Respiratory: Present: no symptoms reported, See HPI Gastrointestinal/Abdominal: Present: See HPI, nausea Genitourinary: Present: no symptoms reported Neurological: Present: no symptoms reported Medical History (Last Reviewed 12/01/19 @ 08:48 by Jem Holguin MD) Anemia CHF (congestive heart failure) Hypercholesteremia Hypokalemia Hypothyroid Pulmonary hypertension Sepsis secondary to UTI Surgical History: Surgical History (Last Reviewed 12/01/19 @ 08:48 by Jem Holguin MD) History of gastric surgery in for ulcers Family History: Family History (Last Reviewed 12/01/19 @ 08:48 by Jem Holguin MD) Other Family history non-contributory Social History: (Last Reviewed 12/01/19 @ 08:48 by Jem Holguin MD) Tobacco: Smoking Status: Never smoker Alcohol: alcohol intake: never Substance Use: substance use type: does not use Physical Exam - Physical Exam General Appearance: Present: alert, mild distress Head Exam: Present: normal inspection Neck: Present: normal inspection Respiratory: Present: rhonchi Cardiovascular/Chest: Present: regular rate, rhythm Gastrointestinal/Abdominal: Present: distended. Absent: abnormal bowel sounds, guarding, rebound, hernia Rectal Exam: Present: deferred Back Exam: Present: normal inspection Extremity Exam: Present: pedal edema Neurological Exam: Present: alert, disoriented to time, disoriented to place - no useful thought content. Absent: oriented Skin Exam: Present: pallor Lymphatic Exam: Present: no adenopathy Progress - Date and Time Seen: Date and Time: 12/01/19 10:26 Pt better breathing with O2, but bowel obstruction, possible pneumonia, fever. Dr. Parish agrees to admission. - Results and Orders Patient's Lab Results:: I have reviewed the patient's lab results. Results and Orders: WBC low normal but XRAY shows recurrence of air fluid levels. UA abnormal. Discharge home is not possible. - Vital Signs Patient's Vital Signs:: I have reviewed the patient's vital signs. Vital Signs: Vital Signs 12/01/19 08:33 Temperature 38.4 C H Pulse Rate 102 H Respiratory Rate 17 Blood Pressure 147/82 O2 Sat by Pulse Oximetry 94 - Progress/Reassessment Chief Complaint: General Assessment Progress:: Unchanged Departure Clinical Impression: Partial bowel obstruction, Fever - Departure Disposition: Short Term Hospital Inpatient Condition: Poor
[2019-12-01 08:54] LABS: Anion Gap 13.4 mmol/L (6.8-13.8); BUN/Creatinine Ratio 26.8 (9.0-21.6); Ca. Corrected For Albumin 8.8 mg/dL (8.4-10.2); Calcium * 8.3 mg/dL (7.9-10.9); Carbon Dioxide 29.3 mmol/L (24-32.6); Potassium 3.7 mmol/L (3.4-4.6)
[2019-12-01 09:13] LABS: Anisocytosis 1+; Atypical (Reactive) Lymph 1 % (0-2); Band 8 % (0-2.0); Lymphocyte 13 % (20-51); Monocyte 17 % (0-9); Neutrophil 61 % (42-75); Neutrophil # 2.4 K/mm3 (1.3-6.0); Platelet Estimate Normal (NORMAL)
[2019-12-01 09:40] LABS: Urine Bilirubin Negative (NEGATIVE); Urine Blood Negative /ul (NEGATIVE); Urine Ketone 5 mg/dL (NEGATIVE); Urine Nitrite Negative (NEGATIVE); Urine Protein Negative (NEGATIVE); Urine Urobilinogen Normal (NORMAL); Urine pH 6.5 pH (5.0-7.0)
[2019-12-01 09:51] LABS: Urine Appearance Slightly Cloudy (CLEAR); Urine Bacteria TRACE; Urine Color Yellow; Urine RBC None Seen /hpf (0-5); Urine WBC 0-5 /hpf (0-5)
[2019-12-01] MEDS ORDERED: SENNOSIDES/DOCUSATE SODIUM 1 TAB TABLET PO PRN (11:58)
[2019-12-01] MEDS ORDERED: FUROSEMIDE 10 MG/ML VIAL IV ONE (12:07)
[2019-12-01] MEDS: SILDENAFIL CITRATE 20 MG TABLET PO SCH ×2 (12:22→16:32)
[2019-12-01] MEDS: ENOXAPARIN SODIUM 40 MG/0.4 ML SYRG SC SCH (12:22)
[2019-12-01] MEDS: ACETAMINOPHEN 500 MG TABLET PO SCH ×3 (12:23→20:39)
--- NOTE | 2019-12-01 14:12 | HP ---
Chief Complaint - Chief Complaint Date of Service: 12/01/19 Time of Service: 12:30 Chief Complaint: Weakness, decreased LOC, hypoxemia to 80%. History of Present Illness: Mrs. Shaw is an 84-year-old female that was just discharged y esterday after being treated for severe constipation and obstipation. She was stooling and had at least a dozen stools after starting cathartics. Her mental status was not great yesterday but not far from her baseline. She has a longstanding history of CHF and fluid retention. She is takes furosemide p.o. daily. Yesterday on auscultation her lungs were clear and they still are today. The chest x-ray shows what appears to be pulmonary vascular congestion and possibly pneumonia. However none of the physical findings of CHF are really present. Neck veins were not distended, her HJ R is nonreactive. She is above 90% on 2 L nasal cannula now. Initially she was on 4 L to get her back above 90. Her mental status at the time of my exam today is better than it was yesterday. I have given her a single dose of furosemide IV 40 mg. If she cannot be weaned back to room air then probably a VQ scan should be done tomorrow. CT scan with PE protocol would require IV contrast material and with her renal status that has chronic kidney disease I would not recommend that at this time. She will be admitted for observation, diuresis, and monitoring. In looking at the x-ray chest, there is eventration of the right hemidiaphragm and small pleural effusions bilaterally versus chronic scarring. I favor the latter. There is no pulmonary vascular congestion but there is cardiomegaly. X-ray of the abdomen shows very little stool present although there is some liquid stool in the cecal area. There are still large dilated loops of bowel and some small bowel gas present.There are multiple air-fluid levels as well. So there is no obstruction but there is a continuing ileus present. Medical History (Last Reviewed 12/01/19 @ 13:20 by Manju Almazan RN) Anemia CHF (congestive heart failure) Hypercholesteremia Hypokalemia Hypothyroid Pulmonary hypertension Sepsis secondary to UTI Surgical History: Surgical History (Last Reviewed 12/01/19 @ 13:20 by Manju Almazan RN) History of gastric surgery in for ulcers Family History: Family History (Last Reviewed 12/01/19 @ 13:20 by Manju Almazan RN) Other Family history non-contributory Social History: (Last Reviewed 12/01/19 @ 13:20 by Manju Almazan RN) Tobacco: Smoking Status: Never smoker Alcohol: alcohol intake: never Substance Use: substance use type: does not use Review Of Systems (GEN) - Review of Systems Generalized/Overall Review: Present: Malaise EENTM: Present: No Symptoms Reported Respiratory: Present: Shortness of Breath Cardiac: Present: No Symptoms Reported Abdominal: Present: Other - Multiple air-fluid levels on the abdomen as well as large dilated loops of gas in both the small and large bowel.. Absent: Nausea, Vomiting, Abdominal Pain Genitourinary: Present: No Symptoms Reported Musculoskeletal: Present: No Symptoms Reported Neurological: Present: No Symptoms Reported Skin: Present: No Symptoms Reported Endocrine: Present: No Symptoms Reported Immunizations: IMMUNIZATION HX Immunizations Up to Date Yes History of Influenza Vaccine Yes Hx Pneumococcal Vaccination No Allergies/Adverse Reactions: Allergies Allergy/AdvReac Type Severity Reaction Status Date / Time No Known Allergies Allergy Verified 12/01/19 13:20 Home Medications: HOME MEDICATIONS Alendronate Sodium [Fosamax] 70 mg PO Q7D 11/19/19 [Last Taken Unknown] Aspirin 81 mg PO DAILY 11/19/19 [Last Taken Unknown] Atorvastatin Calcium [Lipitor] 20 mg PO DAILY 11/19/19 [Last Taken Unknown] Calcium Carbonate [[id number]] 500 mg PO PRN PRN 11/19/19 [Last Taken Unknown] Dexlansoprazole [Dexilant] 60 mg PO DAILY 11/19/19 [Last Taken Unknown] Donepezil HCl [Aricept] 10 mg PO HS 11/19/19 [Last Taken Unknown] Ferrous Sulfate 325 mg PO Q48H 11/19/19 [Last Taken Unknown] Furosemide [Lasix] 40 mg PO DAILY 11/19/19 [Last Taken Unknown] Levothyroxine Sodium [Tirosint] 100 mcg PO DAILY 11/19/19 [Last Taken Unknown] Macitentan [Opsumit] 10 mg PO DAILY 11/19/19 [Last Taken Unknown] Multivitamin [One Daily] 1 ea PO DAILY 11/19/19 [Last Taken Unknown] Potassium Chloride [K-Dur] 20 meq PO DAILY 11/19/19 [Last Taken Unknown] Sildenafil Citrate [Revatio] 20 mg PO TID 11/19/19 [Last Taken Unknown] Acetaminophen 500 mg PO QID #100 tab 11/30/19 [Last Taken Unknown] Polyethylene Glycol 3350 [Miralax] 17 gm PO DAILY #1 bottle 11/30/19 [Last Taken Unknown] Sennosides/Docusate Sodium [Senokot-S] 2 tab PO BID PRN #100 tab 11/30/19 [Last Taken Unknown] Exam - Exam Vital Signs: Vital Signs - Last Taken Temp 37.4 C 12/01/19 11:53 Pulse 101 H 12/01/19 12:25 Resp 21 H 12/01/19 11:54 BP 142/87 12/01/19 12:25 Pulse Ox 93 12/01/19 13:06 Constitutional: Present: Alert, Cooperative, Well developed, Elderly, Thin and frail ENT Exam: Present: normal ENT inspection, hearing grossly normal, pharynx normal Eye Exam: bilateral eye: normal inspection, PERRL, EOMI Neck: Present: non-tender, supple, limited range of motion Back Exam: Present: normal inspection, no CVA tenderness, no vertebral tenderness Breasts: Present: Exam deferred Respiratory: Present: chest non-tender, lungs clear, normal breath sounds, no respiratory distress, no accessory muscle use, No rales, No wheezing. Absent: crackles, rhonchi, stridor, expiration (prolonged) Cardiovascular/Chest: Present: normal peripheral pulses, regular rate, rhythm, no chest tenderness, no edema, no gallop, no JVD, no murmur, no rub Peripheral Pulses: carotid (R): 2+, carotid (L): 2+, radial (R): 2+, radial (L): 2+ Abdomen: Present: Normal bowel sounds, soft, nontender, distended - And tympanitic to percussion /Rectal: Present: Exam deferred Extremity: Present: normal range of motion, non-tender, normal inspection, no pedal edema, no calf tenderness, normal capillary refill Skin Exam: Present: normal color, warm/dry, no cyanosis Lymphatic: Present: no adenopathy Neurologic: Present: rugby union footballer II-XII nml as tested Appearance: Present: appropriate appearance, neat, impaired recent memory Eye contact: Present: cooperative, good eye contact. Absent: normal speech Thoughts: Present: normal thought pattern, no apparent hallucination Diagnostic Studies: Abnormal Lab Results 12/01/19 12/01/19 Range/Units 08:35 08:35 WBC 3.9 L D (4.0-10.5) K/mm3 RDW 14.6 H (11.5-14.0) % Band Neuts % (Manual) 8 H (0-2.0) % Lymphocytes % (Manual) 13 L (20-51) % Monocytes % (Manual) 17 H (0-9) % Lymphocytes # (Manual) 0.5 L (1.5-3.5) k/mm3 BUN 38 H (3-23) mg/dL Creatinine 1.42 H (0.4-1.4) mg/dL Est GFR (Non-Af Amer) 38 L (60-130) mL/min BUN/Creatinine Ratio 26.8 H (9.0-21.6) Total Protein 6.0 L (6.2-8.2) gm/dL Albumin 3.0 L (3.4-5.0) gm/dl Laboratory Results WBC 3.9 K/mm3 (4.0-10.5) L D 12/01/19 08:35 RBC 4.86 M/mm3 (4.2-5.4) 12/01/19 08:35 Hgb 13.8 gm/dL (12.5-16.0) 12/01/19 08:35 Hct 42.7 % (37.0-47.0) 12/01/19 08:35 MCV 87.9 fl (78-100) 12/01/19 08:35 MCH 28.4 pg (27-31) 12/01/19 08:35 MCHC 32.3 g/dl (32-36) 12/01/19 08:35 RDW 14.6 % (11.5-14.0) H 12/01/19 08:35 Plt Count 222 K/mm3 (150-450) 12/01/19 08:35 MPV 10.4 fl (8-12.5) 12/01/19 08:35 Neutrophils % (Manual) 61 % (42-75) 12/01/19 08:35 Band Neuts % (Manual) 8 % (0-2.0) H 12/01/19 08:35 Lymphocytes % (Manual) 13 % (20-51) L 12/01/19 08:35 Monocytes % (Manual) 17 % (0-9) H 12/01/19 08:35 Neutrophils # (Manual) 2.4 K/mm3 (1.3-6.0) 12/01/19 08:35 Lymphocytes # (Manual) 0.5 k/mm3 (1.5-3.5) L 12/01/19 08:35 Monocytes # (Manual) 0.7 k/mm3 (0.0-1.0) 12/01/19 08:35 Atypic/Reactive Lymphs 1 % (0-2) 12/01/19 08:35 Platelet Estimate Normal (NORMAL) 12/01/19 08:35 Anisocytosis 1+ 12/01/19 08:35 Sodium 142 mmol/L (132-142) 12/01/19 08:35 Plasma Sodium 142 mmol/L (130-142) 12/01/19 08:35 Potassium 3.7 mmol/L (3.4-4.6) 12/01/19 08:35 Chloride 103 mmol/L (97-106) 12/01/19 08:35 Carbon Dioxide 29.3 mmol/L (24-32.6) 12/01/19 08:35 Anion Gap 13.4 mmol/L (6.8-13.8) 12/01/19 08:35 BUN 38 mg/dL (3-23) H 12/01/19 08:35 Creatinine 1.42 mg/dL (0.4-1.4) H 12/01/19 08:35 Est GFR (Non-Af Amer) 38 mL/min (60-130) L 12/01/19 08:35 BUN/Creatinine Ratio 26.8 (9.0-21.6) H 12/01/19 08:35 Random Glucose 100 mg/dL (70-110) 12/01/19 08:35 Lactic Acid, Venous 1.2 mmol/L (0.4-2.0) 12/01/19 08:35 Calcium 8.3 mg/dL (7.9-10.9) 12/01/19 08:35 Calcium Adj for Albumin 8.8 mg/dL (8.4-10.2) 12/01/19 08:35 Total Bilirubin 1.0 mg/dL (0.0-1.1) 12/01/19 08:35 AST 27 U/L (0-48) 12/01/19 08:35 ALT 32 U/L (19-67) 12/01/19 08:35 Alkaline Phosphatase 89 U/L (50-170) 12/01/19 08:35 Total Protein 6.0 gm/dL (6.2-8.2) L 12/01/19 08:35 Albumin 3.0 gm/dl (3.4-5.0) L 12/01/19 08:35 Amylase 33 U/L (25-115) 12/01/19 08:35 Lipase 75 U/L (73-393) 12/01/19 08:35 Urine Color Yellow 12/01/19 09:01 Urine Appearance Slightly cloudy (CLEAR) 12/01/19 09:01 Urine pH 6.5 pH (5.0-7.0) 12/01/19 09:01 Ur Specific [place] 1.010 SP.GR. (1.005-1.010) 12/01/19 09:01 Urine Protein Negative mg/dL (NEGATIVE) 12/01/19 09:01 Urine Glucose (UA) Negative mg/dL (NEGATIVE) 12/01/19 09:01 Urine Ketones 5 mg/dL (NEGATIVE) 12/01/19 09:01 Urine Blood Negative /ul (NEGATIVE) 12/01/19 09:01 Urine Nitrate Negative (NEGATIVE) 12/01/19 09:01 Urine Bilirubin Negative mg/dl (NEGATIVE) 12/01/19 09:01 Urine Urobilinogen Normal EU/dl (NORMAL) 12/01/19 09:01 Ur Leukocyte Esterase Negative /ul (NEGATIVE) 12/01/19 09:01 Urine RBC None seen /hpf (0-5) 12/01/19 09:01 Urine WBC 0-5 /hpf (0-5) 12/01/19 09:01 Ur Epithelial Cells 0-5 /hpf (0-5) 12/01/19 09:01 Urine Bacteria Trace (NONE) 12/01/19 09:01 Urine Culture Comments Culture to follow 12/01/19 09:01 Assessment/Plan - Narrative Narrative: 1. Lasix 40 mg IV push x1. 2. Attempt to wean from oxygen 3. Dulcolax suppositories every 6 hours 4. Continue her usual medicines as per usual as ordered. - Assessment/Plan (1) Adynamic ileus Problem: Acute (2) Acute respiratory failure with hypoxemia Problem: Acute (3) Pulmonary hypertension Problem: Chronic (4) Fever Problem: Acute Qualifiers: Fever type: unspecified Qualified Code(s): R50.9 - Fever, unspecified (5) CKD (chronic kidney disease) stage 3, GFR 30-59 ml/min Problem: Chronic
[2019-12-01] MEDS: BISACODYL 10 MG SUPP.RECT RC SCH ×2 (14:52→20:40)
[2019-12-01] MEDS: DONEPEZIL HCL 10 MG TABLET PO SCH (20:39)
[2019-12-01] MEDS ORDERED: TEMAZEPAM 15 MG CAPSULE PO ONE (21:30)
[2019-12-02] MEDS: BISACODYL 10 MG SUPP.RECT RC SCH ×2 (01:37→08:35)
[2019-12-02] MEDS: ACETAMINOPHEN 500 MG TABLET PO SCH ×4 (08:34→22:11)
[2019-12-02] MEDS: MACITENTAN 10 MG PO SCH (08:34)
[2019-12-02] MEDS: SILDENAFIL CITRATE 20 MG TABLET PO SCH ×3 (08:34→17:13)
[2019-12-02] MEDS: FUROSEMIDE 40 MG TABLET PO SCH (08:34)
[2019-12-02] MEDS: LEVOTHYROXINE SODIUM 100 MCG TABLET PO SCH (08:34)
[2019-12-02] MEDS: POTASSIUM CHLORIDE 20 MEQ TABLET.SA PO SCH (08:34)
[2019-12-02] MEDS: ASPIRIN 81 MG TAB.CHEW PO SCH (08:35)
[2019-12-02] MEDS: POLYETHYLENE GLYCOL 3350 17 GM PACKET PO SCH (08:35)
[2019-12-02] MEDS: PANTOPRAZOLE SODIUM 40 MG TABLET.EC PO SCH (08:35)
--- NOTE | 2019-12-02 11:29 | PN ---
Subjective - Date and Time Seen Date: 12/02/19 Time: 10:00 Subjective Narrative: Mrs. Shaw is feeling some better today. She can tell that her abdomen is less distended and not cramping is much. She has had good results from the Dulcolax suppositories which have been given 3 times at 6-hour intervals. On exam she is still tympanitic and has a lot of intraluminal bowel gas still present. KUB and upright this morning shows still there is some retention of stool and obstruction is not ruled out but with her stooling is much as she has been I do not believe she is obstructed. She has an unresolved ileus that is improving. I decided to give the fourth dose of Dulcolax suppository this morning. She has had no more respiratory distress and is now on room air with oxygen saturations in the low 90s. The etiology of the hypoxic event that readmitted her is still undetermined. Her vital signs have been stable and she is afebrile. I anticipate discharge tomorrow. Objective - Review of Systems Generalized/Overall Review: Reports: No Symptoms Reported, Weakness EENTM: Reports: No Symptoms Reported Respiratory: Reports: No Symptoms Reported Cardiac: Reports: No Symptoms Reported Abdominal: Reports: Abdominal Pain - Is improved, Other - Bloating persists Genitourinary Symptoms: Reports: No Symptoms Reported Musculoskeletal Complaints: Reports: No Symptoms Reported Neurological: Reports: No Symptoms Reported Skin: Reports: No Symptoms Reported Endocrine: Reports: No Symptoms Reported - Vitals Vitals: Last Vital Signs Temp 36.8 C 12/02/19 10:45 Pulse 87 12/02/19 10:45 Resp 12 12/02/19 10:45 BP 120/66 12/02/19 10:45 Pulse Ox 91 L 12/02/19 10:45 - EKG/Xray Findings Interpretation: Interp. by me - Exam Constitutional: Present: Alert, Oriented x3, Cooperative, Well developed, Well nourished, No distress ENT Exam: Present: normal ENT inspection, hearing grossly normal, pharynx normal, TMs normal Neck: Present: non-tender, full range of motion Breasts: Present: Exam deferred Respiratory: Present: chest non-tender, lungs clear, normal breath sounds, no respiratory distress, no accessory muscle use Cardiovascular/Chest: Present: normal peripheral pulses, regular rate, rhythm, no chest tenderness, no edema, no gallop, no JVD, no murmur, no rub Abdomen: Present: soft, nontender, distended - And tympanitic to percussion, hypoactive /Rectal: Present: Exam deferred Extremity: Present: normal range of motion, non-tender, normal inspection, no pedal edema, no calf tenderness, normal capillary refill Skin Exam: Present: normal color, warm/dry, no cyanosis Lymphatic: Present: no adenopathy Neurologic: Present: ammonia nitrate operator II-XII nml as tested, no motor/sensory deficits, alert, normal mood/affect Appearance: Present: appropriate appearance, appropriate insight, neat, impaired recent memory Eye contact: Present: cooperative, good eye contact, normal speech Thoughts: Present: normal thought pattern, no apparent hallucination Assessment/Plan Plan Narrative: 1. Continue Dulcolax suppositories 2. Continue supportive care. 3. Repeat chest x-ray tomorrow morning 4. Repeat KUB and upright abdomen tomorrow morning - Problems/Diagnosis (1) Adynamic ileus Problem: Acute (2) Acute respiratory failure with hypoxemia Problem: Resolved (3) Pulmonary hypertension Problem: Chronic (4) Fever Problem: Resolved Qualifiers: Fever type: unspecified Qualified Code(s): R50.9 - Fever, unspecified (5) CKD (chronic kidney disease) stage 3, GFR 30-59 ml/min Problem: Chronic
[2019-12-02] MEDS: ENOXAPARIN SODIUM 40 MG/0.4 ML SYRG SC SCH (13:09)
[2019-12-02] MEDS: DONEPEZIL HCL 10 MG TABLET PO SCH (22:11)
[2019-12-03 06:05] LABS: Hematocrit 38.7 % (37.0-47.0); Hemoglobin 12.6 gm/dL (12.5-16.0); Mean Cell Volume 87.8 fl (78-100); Mean Corpuscular Hemoglobin 28.6 pg (27-31); Mean Corpuscular Hgb Conc 32.6 g/dl (32-36); Mean Platelet Volume 10.2 fl (8-12.5); Neutrophil # 3.6 K/mm3 (1.3-6.0); Neutrophil % 63.4 % (42-75.0); Platelet Count 192 K/mm3 (150-450); Red Blood Count 4.41 M/mm3 (4.2-5.4); Red Cell Distribution Width 14.2 % (11.5-14.0); White Blood Count 5.7 K/mm3 (4.0-10.5)
[2019-12-03 06:13] LABS: Albumin * 2.3 gm/dl (3.4-5.0); Anion Gap 9.2 mmol/L (6.8-13.8); BUN/Creatinine Ratio 27.6 (9.0-21.6); Bilirubin, Total 0.6 mg/dL (0.0-1.1); Ca. Corrected For Albumin 8.6 mg/dL (8.4-10.2); Calcium * 7.6 mg/dL (7.9-10.9); Carbon Dioxide 29.3 mmol/L (24-32.6); Potassium 3.5 mmol/L (3.4-4.6); Total Protein 4.6 gm/dL (6.2-8.2)
[2019-12-03] MEDS: PANTOPRAZOLE SODIUM 40 MG TABLET.EC PO SCH (07:07)
[2019-12-03] MEDS: LEVOTHYROXINE SODIUM 100 MCG TABLET PO SCH (07:07)
[2019-12-03] MEDS: ASPIRIN 81 MG TAB.CHEW PO SCH (08:50)
[2019-12-03] MEDS: ACETAMINOPHEN 500 MG TABLET PO SCH ×4 (08:50→22:05)
[2019-12-03] MEDS: SILDENAFIL CITRATE 20 MG TABLET PO SCH ×3 (08:50→16:10)
[2019-12-03] MEDS: FUROSEMIDE 40 MG TABLET PO SCH (08:51)
[2019-12-03] MEDS: POTASSIUM CHLORIDE 20 MEQ TABLET.SA PO SCH (08:51)
[2019-12-03] MEDS: POLYETHYLENE GLYCOL 3350 17 GM PACKET PO SCH (08:58)
[2019-12-03] MEDS: BISACODYL 10 MG SUPP.RECT RC SCH (08:59)
[2019-12-03] MEDS: MACITENTAN 10 MG PO SCH (09:00)
[2019-12-03] MEDS: ENOXAPARIN SODIUM 40 MG/0.4 ML SYRG SC SCH (11:25)
--- NOTE | 2019-12-03 18:22 | PN ---
Subjective - Date and Time Seen Date: 12/03/19 Time: 07:20 Subjective Narrative: Mrs. Shaw has had an uneventful night. She is more alert and conversant and her voice is much easier to understand today. She is considerably more lucid today. She has eaten a full breakfast and has no complaints. Her abdomen continues to be distended with gas but there is very little stool in the colon. I spoke with Dr. Kilpatrick and his opinion is that she has an atonic colon and will require lifelong cathartics to keep her from getting impacted again. Case management is working on alf placement but because of a very expensive medicine she takes for her pulmonary hypertension they do not want to absorb that cost. It is $10,000 per month. So she will be with us at least another night pending placement. No change in therapy. Objective - Review of Systems Generalized/Overall Review: Reports: Weakness - But improving EENTM: Reports: No Symptoms Reported Respiratory: Reports: Shortness of Breath - With exertion Cardiac: Reports: No Symptoms Reported Abdominal: Reports: Constipation - Is resolved, Other - Bloating Genitourinary Symptoms: Reports: No Symptoms Reported Musculoskeletal Complaints: Reports: No Symptoms Reported Neurological: Reports: No Symptoms Reported, Weakness Skin: Reports: No Symptoms Reported Endocrine: Reports: No Symptoms Reported - Vitals Vitals: Last Vital Signs Temp 37.2 C 12/03/19 17:39 Pulse 89 12/03/19 17:39 Resp 22 H 12/03/19 17:39 BP 130/58 12/03/19 17:39 Pulse Ox 94 12/03/19 17:39 - Abnormal Lab Findings Abnormal Lab Findings: Abnormal Lab Results 12/03/19 12/03/19 Range/Units 05:55 05:55 RDW 14.2 H (11.5-14.0) % Immature Gran % (Auto) 3.10 H (0.001-0.429) % Immature Gran # (Auto) 0.18 H (0.000-0.0310) K/mm3 Lymphocytes % 18.7 L (20-51) % Monocytes % 11.9 H (0.0-9) % Lymphocytes # 1.07 L (1.5-3.5) k/mm3 BUN 35 H (3-23) mg/dL Est GFR (Non-Af Amer) 43 L (60-130) mL/min BUN/Creatinine Ratio 27.6 H (9.0-21.6) Calcium 7.6 L (7.9-10.9) mg/dL Total Protein 4.6 L (6.2-8.2) gm/dL Albumin 2.3 L (3.4-5.0) gm/dl - EKG/Xray Findings XRAY: abdomen Interpretation: Reviewed by me - Exam Constitutional: Present: Alert, Oriented x3, Cooperative, Well developed, Well nourished, No distress ENT Exam: Present: normal ENT inspection, hearing grossly normal, pharynx normal, TMs normal Neck: Present: non-tender, full range of motion, supple, normal inspection Breasts: Present: Exam deferred Respiratory: Present: chest non-tender, lungs clear, normal breath sounds Cardiovascular/Chest: Present: normal peripheral pulses, regular rate, rhythm, no chest tenderness, no edema, no gallop, no JVD, no murmur, no rub Abdomen: Present: Normal bowel sounds, soft, nontender, nondistended, no rebound tenderness, no hepatospenomegaly, no masses /Rectal: Present: Exam deferred Extremity: Present: normal range of motion, non-tender, normal inspection, no pedal edema, no calf tenderness, normal capillary refill Skin Exam: Present: normal color, warm/dry, no cyanosis, cool/dry Lymphatic: Present: no adenopathy Neurologic: Present: azure architect II-XII nml as tested, normal cerebellar test, no motor/sensory deficits, alert, normal mood/affect, oriented x 3 Appearance: Present: appropriate appearance, appropriate insight, neat Eye contact: Present: cooperative, good eye contact, normal speech Thoughts: Present: normal thought pattern, no apparent hallucination Assessment/Plan Plan Narrative: 1. Continue current therapy. 2. I will have her get a Dulcolax suppository once daily. 3. Oxygen is not needed as she is 94% on room air. So the O2 is discontinued. - Problems/Diagnosis (1) Adynamic ileus Problem: Acute (2) Acute respiratory failure with hypoxemia Problem: Resolved (3) Pulmonary hypertension Problem: Chronic (4) Fever Problem: Resolved Qualifiers: Fever type: unspecified Qualified Code(s): R50.9 - Fever, unspecified (5) CKD (chronic kidney disease) stage 3, GFR 30-59 ml/min Problem: Chronic
[2019-12-03] MEDS ORDERED: TEMAZEPAM 15 MG CAPSULE PO ONE (21:00)
[2019-12-03] MEDS: DONEPEZIL HCL 10 MG TABLET PO SCH (22:05)
[2019-12-04] MEDS: LEVOTHYROXINE SODIUM 100 MCG TABLET PO SCH (07:20)
[2019-12-04] MEDS: PANTOPRAZOLE SODIUM 40 MG TABLET.EC PO SCH (07:20)
[2019-12-04] MEDS: POLYETHYLENE GLYCOL 3350 17 GM PACKET PO SCH (10:16)
[2019-12-04] MEDS: ASPIRIN 81 MG TAB.CHEW PO SCH (10:21)
[2019-12-04] MEDS: ACETAMINOPHEN 500 MG TABLET PO SCH ×3 (10:22→17:54)
[2019-12-04] MEDS: SILDENAFIL CITRATE 20 MG TABLET PO SCH ×3 (10:22→17:54)
[2019-12-04] MEDS: POTASSIUM CHLORIDE 20 MEQ TABLET.SA PO SCH (10:22)
[2019-12-04] MEDS: FUROSEMIDE 40 MG TABLET PO SCH (10:22)
[2019-12-04] MEDS: MACITENTAN 10 MG PO SCH (10:22)
[2019-12-04] MEDS: BISACODYL 10 MG SUPP.RECT RC SCH (10:23)
[2019-12-04] MEDS: ENOXAPARIN SODIUM 40 MG/0.4 ML SYRG SC SCH (13:30)
--- NOTE | 2019-12-04 14:42 | DS ---
(1) Adynamic ileus Problem: Acute (2) Acute respiratory failure with hypoxemia Problem: Resolved (3) Pulmonary hypertension Problem: Chronic (4) Fever Problem: Resolved Qualifiers: Fever type: unspecified Qualified Code(s): R50.9 - Fever, unspecified (5) CKD (chronic kidney disease) stage 3, GFR 30-59 ml/min Problem: Chronic Date of Discharge:: 12/04/19 Hospital Course: Michelle Shaw is a 84-year-old female admitted through ER with severe constipation and obstipation. She has had previous problems with constipation. She had developed some nausea and vomiting and abdominal pain. She was started on MiraLAX, Senokot-S, Dulcolax tablets. I assumed her care on Monday night and started her on Dulcolax suppositories. I had them give her 1 every 6 hours which triggered a lot of stooling. Repeat KUB showed most of the stool to be evacuated but that there was a lot of air dilated loops. Yesterday and today she has eaten well. She was quite confused on admission but is much more lucid the last 2 days. She has a longstanding history of pulmonary hypertension and takes some medication the cost $10,000 a month for that. The family wanted her to be admitted to a long-term care facility but none of them would accept her with his expensive medicine. Therefore she is being discharged to home with her family to care for her. I have stopped the calcium because of its constipating effects. I have stopped the furosemide as of November 29. Allowing her to rehydrate has improved her mental status. She needs to see Dr. Xiong within the next week. It is likely that she may need diuretic therapy occasionally but perhaps not daily. Early detection of fluid overload is important. But for now I am holding that. Because she is not going to get the furosemide of also held the potassium supplementation. The family has agreed to allow home health for nursing and physical therapy. Mrs. Shaw will be confined to home due to chronic illnesses and poor mobility. The need for long-term is for monitoring of fluid hydration status, mental status, oxygen saturation measurements, education for the family about medications, and to make sure she is being followed up by Dr. Xiong her PCP. The need for physical therapy is for limb strengthening, balance training, gait training and transfer training. Occupational therapy and speech therapy are not being ordered at this time. The need for home health care skilled services is directly related to the time spent [id number] with the person. Procedures Performed: none Care Plan Goals: Prevention of repeat obstipation. She has an atonic colon and will require cathartics the rest of her life. Results and Findings: Lab Pending Results 12/01/19 08:35: WBC 3.9 L D, RBC 4.86, Hgb 13.8, Hct 42.7, MCV 87.9, MCH 28.4, MCHC 32.3, RDW 14.6 H, Plt Count 222, MPV 10.4, Neutrophils % (Manual) 61, Band Neuts % (Manual) 8 H, Lymphocytes % (Manual) 13 L, Monocytes % (Manual) 17 H, Neutrophils # (Manual) 2.4, Lymphocytes # (Manual) 0.5 L, Monocytes # (Manual) 0.7, Atypic/Reactive Lymphs 1, Platelet Estimate Normal, Anisocytosis 1+ 12/01/19 08:35: Sodium 142, Plasma Sodium 142, Potassium 3.7, Chloride 103, Carbon Dioxide 29.3, Anion Gap 13.4, BUN 38 H, Creatinine 1.42 H, Est GFR (Non- Af Amer) 38 L, BUN/Creatinine Ratio 26.8 H, Random Glucose 100, Calcium 8.3, Calcium Adj for Albumin 8.8, Total Bilirubin 1.0, AST 27, ALT 32, Alkaline Phosphatase 89, Total Protein 6.0 L, Albumin 3.0 L, Amylase 33, Lipase 75 12/01/19 08:35: Lactic Acid, Venous 1.2 12/01/19 09:01: Urine Color Yellow, Urine Appearance Slightly cloudy, Urine pH 6.5, Ur Specific [place] 1.010, Urine Protein Negative, Urine Glucose (UA) Negative, Urine Ketones 5, Urine Blood Negative, Urine Nitrate Negative, Urine Bilirubin Negative, Urine Urobilinogen Normal, Ur Leukocyte Esterase Negative, Urine RBC None seen, Urine WBC 0-5, Ur Epithelial Cells 0-5, Urine Bacteria Trace, Urine Culture Comments Culture to follow 12/03/19 05:55: WBC 5.7 D, RBC 4.41, Hgb 12.6, Hct 38.7, MCV 87.8, MCH 28.6, MCHC 32.6, RDW 14.2 H, Plt Count 192, MPV 10.2, Immature Gran % (Auto) 3.10 H, Immature Gran # (Auto) 0.18 H, Neutrophils % 63.4, Lymphocytes % 18.7 L, Monocytes % 11.9 H, Eosinophils % 2.4, Basophils % 0.5, Nucleated RBC % 0.0, Neutrophils # 3.6, Lymphocytes # 1.07 L, Monocytes # 0.7, Eosinophils # 0.1, Absolute Basophils 0.0 12/03/19 05:55: Sodium 140, Plasma Sodium 140, Potassium 3.5, Chloride 105, Carbon Dioxide 29.3, Anion Gap 9.2, BUN 35 H, Creatinine 1.27, Est GFR (Non-Af Amer) 43 L, BUN/Creatinine Ratio 27.6 H, Random Glucose 104, Calcium 7.6 L, Calcium Adj for Albumin 8.6, Total Bilirubin 0.6, AST 24, ALT 23, Alkaline Phosphatase 80, Total Protein 4.6 L, Albumin 2.3 L Discharge Location: Home Disposition: Home Health Service Home Health Agency: [facility] [place] Home Health Condition: Poor Face to Face Encounter completed per [facility] Guidelines: Yes Discharge Activity: Activity as tolerated, Weight bearing Discharge Diet: General/regular food Residential Therapy: Physical Therapy Additional Patient Instructions (free text): She will be returned to the care of Dino Albrecht. [facility] [place] Home Health [facility], please call and fax discharge orders. Complete Home Medications List: Complete Home Medication List: Alendronate Sodium [Fosamax] 70 mg PO Q7D 11/19/19 Aspirin 81 mg PO DAILY 11/19/19 Atorvastatin Calcium [Lipitor] 20 mg PO DAILY 11/19/19 Dexlansoprazole [Dexilant] 60 mg PO DAILY 11/19/19 Donepezil HCl [Aricept] 10 mg PO HS 11/19/19 Ferrous Sulfate 325 mg PO Q48H 11/19/19 Levothyroxine Sodium [Tirosint] 100 mcg PO DAILY 11/19/19 Macitentan [Opsumit] 10 mg PO DAILY 11/19/19 Multivitamin [One Daily] 1 ea PO DAILY 11/19/19 Sildenafil Citrate [Revatio] 20 mg PO TID 11/19/19 Acetaminophen 500 mg PO QID #100 tab 11/30/19 Polyethylene Glycol 3350 [Miralax] 17 gm PO DAILY #1 bottle 11/30/19 Sennosides/Docusate Sodium [Senokot-S] 2 tab PO BID PRN #100 tab 11/30/19 Bisacodyl [Dulcolax Suppository] 10 mg RC DAILY #30 supp.rect 12/04/19 Forms: Patient Portal Registration
[2019-12-04 18:45] VITALS: BP 117/69
== END 2019-12-04 18:45 | disposition home health service (06) | DRG 388 ==
LOC: ER 08:19 → MS 10:28
PROVIDERS: ADMIT Family Medicine; ATTEND Family Medicine
DX: N18.3 Chronic kidney disease, stage 3 (moderate); K59.00 Constipation, unspecified; K56.0 Paralytic ileus; I27.20 Pulmonary hypertension, unspecified; I13.0 Hypertensive heart and chronic kidney disease with heart failure and stage 1 through stage 4 chronic kidney disease, or unspecified chronic kidney disease; J96.01 Acute respiratory failure with hypoxia; I50.9 Heart failure, unspecified
CPT/HCPCS: 36415; 71010; 71045; 74019; 74020; 80053; 81001; 82150; 83605; 83690; 85025; 87077; 87086; 87186; 97110; 97116; 97162; 99285